=== PATIENT | male | born 1950 | race Caucasian/White ===

== ENCOUNTER 2016-04-20 10:44 | Emergency (ER) | payer OTHER ==
[~2016-04-20 10:44] MED LIST: EPINEPHrine 10 ML SYRINGE (0.1 MG/ML) ONE
--- NOTE | 2016-04-20 11:22 | ED ---
General Adult HPI - General Chief complaint: Cardiac Arrest/CPR Stated complaint: Full Arrest Time Seen by Provider: 04/20/16 10:44 Source: EMS, RN notes reviewed Mode of arrival: EMS - History of Present Illness Initial comments: This is a 65-year-old male who has a past medical history significant for drinking in the past smoking COPD end-stage hospice patient and coronary artery disease. According to family he became unresponsive around 10:00 EMS they state they called EMS about 10 minutes later and they arrived at [id number] EMS stated there was no pulses they intubated the patient perform CPR and followed ACLS protocol no pulses returned they arrived in the emergency department at 1042 and the patient had no pulses that time. We continued CPR. The patient other epinephrine and the patient remained in either asystole or PEA the whole time in the emergency department. I pronounced the patient at 1055 - Related Data Home Medications Medication Instructions Recorded Confirmed Albuterol Sulfate [Ventolin HFA] 2 puff INHALATION RT-Q4H PRN 08/29/13 03/02/16 Ensure 1 can PO BID-W/MEALS 01/28/15 03/02/16 Previous Rx's Medication Instructions Recorded Aspirin 81 mg PO DAILY chew 01/28/15 Atorvastatin [Lipitor] 80 mg PO HS tab 01/28/15 Citalopram Hydrobromide [CeleXA] 40 mg PO DAILY tab 01/28/15 Clopidogrel [Plavix] 75 mg PO DAILY tab 01/28/15 Lisinopril [Zestril] 5 mg PO DAILY tab 01/28/15 Methocarbamol [Robaxin] 750 mg PO Q6HR PRN #0 tab 01/28/15 Metoprolol Succinate (ER) [Toprol 25 mg PO BID tab.er.24h 01/28/15 XL] Montelukast [Singulair] 10 mg PO HS tab 01/28/15 Thiamine [Vitamin B-1] 100 mg PO DAILY@1200 tab 01/28/15 Budesonide [Pulmicort] 1 mg INHALATION RT-BID nebu 03/14/16 Folic Acid 1 mg PO DAILY@1200 tab 03/14/16 Furosemide [Lasix] 20 mg PO DAILY tab 03/14/16 INSULIN LISPRO (humaLOG) [humaLOG 0 unit SQ ACHS vial 03/14/16 (formulary)] Multivitamins, Thera [Multivitamin] 1 each PO DAILY@1200 tab 03/14/16 Pantoprazole [Protonix] 40 mg PO AC-BID tablet. 03/14/16 ALPRAZolam [Xanax] 0.25 mg PO Q6HR PRN #20 tab 03/18/16 HYDROcodone/APAP 5-325MG [[place] 1 each PO Q6HR PRN #20 tab 03/18/16 5-325] Temazepam [Restoril] 15 mg PO HS PRN #20 cap 03/18/16 Allergies Allergy/AdvReac Type Severity Reaction Status Date / Time No Known Allergies Allergy Verified 03/02/16 09:49 Review of Systems ROS Statement: Those systems with pertinent positive or pertinent negative responses have been documented in the HPI. ROS Other: All systems not noted in ROS Statement are negative. Past Medical History Past Medical History: Coronary Artery Disease (CAD), Cancer, Chest Pain / Angina , COPD, Hypertension, Myocardial Infarction (NH), Osteoarthritis (OA), Pneumonia , Prostate Disorder Additional Past Medical History / Comment(s): Chronic respiratory failure with O2 dependent on 3L/NC continuously, pancreatitis, cardiomyopathy, past alcoholism, asbestos exposure, hyponatremia, hypomagnesemia, random elevated BS possible D/T steroid use, prostate cancer with surgery, DJD Last Myocardial Infarction Date:: 2011 History of Any Multi-Drug Resistant Organisms: None Reported Past Surgical History: Adenoidectomy, Heart Catheterization, Heart Catheterization With Stent, Joint Replacement, Orthopedic Surgery, Tonsillectomy Additional Past Surgical History / Comment(s): Repair of bleeding ulcer, RT knee replacement, bilateral heel surgery with titanium implants after a fall from scaffolding, cardiac cath 08/31/13 Past Anesthesia/Blood Transfusion Reactions: No Reported Reaction Date of Last Stent Placement:: 2011 Past Psychological History: No Psychological Hx Reported Additional Psychological History / Comment(s): Pt lives with his sister and brother in law. He is fairly independent. He performs his own ADLs. He has a shower chair, a walker chair, a wheelchair and a cane and uses whichever depending on how he is feeling that day. He is home O2 dependent on 3L/NC. He does not drive-family take him places. Smoking Status: Current every day smoker Past Alcohol Use History: Occasional Additional Past Alcohol Use History / Comment(s): STARTED SMOKING AT AGE 26, pt states he has not smoked for one month now. He drinks 6 beers a day. Patient denies any marijuana or street drug use. 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 Patient has had asbestos exposure. He was in [place] for 3 terms and was exposed to agent orange. He is currently living with his sister and her . There is a dog in the home Past Drug Use History: None Reported - Past Family History Father History Unknown: Yes Additional Family Medical History / Comment(s): FROM CIRRHOSIS OF THE LIVER Mother History Unknown: Yes Family Medical History: Pneumonia Additional Family Medical History / Comment(s): AT AGE 68 PNEUMONIA General Exam General appearance: other (Patient was unresponsive) Head exam: Present: atraumatic Eye exam: Present: other (Pupils were dilated) Respiratory exam: Present: other (Patient was intubated good breath sounds bilaterally while being bagged no spontaneous breath sounds.) Cardiovascular Exam: Present: other (Patient had no pulses and no heart beat) Neurological exam: Present: other (Patient's GCS was 3) Medical Decision Making - Medical Decision Making We continued to perform CPR bag the patient and follow acls protocol. Patient was pronounced at 1055. I spoke with the medical interpreter. I also spoke with family. Critical Care Time Critical Care Time: Yes Total Critical Care Time: 35 Disposition Clinical Impression: Cardiorespiratory arrest Disposition: Referrals: Jaime Gamez DO [Primary Care Provider] - 1-2 days Time of Disposition: 11:22 Preliminary Cause of : Cardiopulmonary arrest
== END 2016-04-20 12:59 | disposition expired ==
LOC: EC 10:44
DX: I46.9 Cardiac arrest, cause unspecified (principal); J44.9 Chronic obstructive pulmonary disease, unspecified; Z79.82 Long term (current) use of aspirin; Z79.899 Other long term (current) drug therapy; Z79.02 Long term (current) use of antithrombotics/antiplatelets; Z79.51 Long term (current) use of inhaled steroids; Z79.4 Long term (current) use of insulin; I25.10 Atherosclerotic heart disease of native coronary artery without angina pectoris; I25.2 Old myocardial infarction; I10 Essential (primary) hypertension; J96.10 Chronic respiratory failure, unspecified whether with hypoxia or hypercapnia; Z99.81 Dependence on supplemental oxygen; F17.200 Nicotine dependence, unspecified, uncomplicated; Z95.5 Presence of coronary angioplasty implant and graft; I42.9 Cardiomyopathy, unspecified
CPT/HCPCS: 92950 ×2; 99291 ×2; J0171